=== PATIENT | male | born 1975 | race Caucasian/White ===

== ENCOUNTER → 2016-11-18 | Outpatient (CLI) | payer MEDICARE, MEDICAID ==
--- NOTE | 2016-11-18 15:53 | DI ---
Indication: ITS.REASON: M79.602 LEFT ARM PAIN; Z86.718 HISTORY OF DVT PROCEDURE: US VENOUS DUPLEX, UPPER EXT LT: Encounter: Initial Comparison: None Technique: Color Doppler duplex and grayscale sonographic imaging of the left upper extremity was performed. FINDINGS: There is no evidence for acute deep venous thrombosis in the left arm. There is superficial thrombosis seen within the cephalic vein in the area of palpable abnormality. The left internal jugular, subclavian, axillary and paired brachial veins were evaluated; compression and augmentation were applied where possible. In addition, color and pulsed Doppler demonstrate appropriate spontaneous flow, cardiac pulsatility and variation with respiration. IMPRESSION: 1. Superficial thrombophlebitis of the cephalic vein. 2. No evidence of acute DVT in the left upper extremity. .
== END ==
LOC: IMA 14:51
PROVIDERS: ATTEND Family Medicine
DX: I80.8 Phlebitis and thrombophlebitis of other sites (principal); Z86.718 Personal history of other venous thrombosis and embolism; M79.602 Pain in left arm